=== PATIENT | female | born 2000 | race Two or more races ===

== ENCOUNTER 2022-06-07 10:39 | Emergency (ER) | payer OTHER ==
[~2022-06-07] VITALS: Ht 154.9 cm; Wt 73.5 kg
== END 2022-06-07 14:45 | disposition home or self-care (01) ==
LOC: ER 10:39
DX: O98.512 Other viral diseases complicating pregnancy, second trimester (principal); Z3A.24 24 weeks gestation of pregnancy; Z20.822 Contact with and (suspected) exposure to COVID-19; Z88.0 Allergy status to penicillin